=== PATIENT | male | born 1960 | race Caucasian/White ===

== ENCOUNTER 2021-02-01 18:23 | Emergency (ER) | payer BC ==
[~2021-02-01] VITALS: Ht 165.1 cm; Wt 67.0 kg
[2021-02-01 18:33] VITALS: BP 128/66
[2021-02-01] MEDS ORDERED: POLY10DR LEFTEYE (21:30)
== END 2021-02-01 22:43 | disposition home or self-care (01) ==
LOC: ER 19:17
DX: H10.9 Unspecified conjunctivitis (principal)
CPT/HCPCS: 99281